=== PATIENT | male | born 1980 | race Caucasian/White ===

== ENCOUNTER 2017-02-08 11:15 | Emergency (ER) | payer BC ==
[~2017-02-08] VITALS: Ht 180.3 cm; Wt 122.5 kg
[~2017-02-08 11:15] MED LIST: CIPRO 500MG TA500 MG PO
--- OUTSIDE RECORDS SUMMARY | 2017-02-08 11:21 | External Medical Summary Rpt ---
Author Author NELSON Address Unknown Phone [email or web address] Purpose Continuity of Care Document - through 2016
--- OUTSIDE RECORDS SUMMARY | 2017-02-08 11:21 | External Medical Summary Rpt ---
Author Author [employer] Organization [employer] Address Unknown Phone Unavailable Purpose Continuity of Care Document - through 2016
--- OUTSIDE RECORDS SUMMARY | 2017-02-08 11:21 | External Medical Summary Rpt ---
Demographics Preferred Language Tamaz[place] Marital Status Unknown Hindu Affiliation Unknown Race Unknown Ethnic Group Unknown Author Author , NELSON DAMON Address Unknown Phone Immunization Unable to retrieve immunization data due to connection failure with Immunization Registry. Please try again later.
--- OUTSIDE RECORDS SUMMARY | 2017-02-08 11:21 | External Medical Summary Rpt ---
Author Author NELSON Verde, [employer] Organization [employer] Address Unknown Phone Unavailable
--- OUTSIDE RECORDS SUMMARY | 2017-02-08 11:21 | External Medical Summary Rpt ---
Demographics Preferred Language Belarusian Marital Status Unknown Alevism Affiliation Unknown Race Unknown Ethnic Group Unknown Author Author , NELSON DAMON Address Unknown Phone Immunization Unable to retrieve immunization data due to connection failure with Immunization Registry. Please try again later.
--- OUTSIDE RECORDS SUMMARY | 2017-02-08 11:21 | External Medical Summary Rpt ---
Author Author NELSON Address Unknown Phone [email or web address] Purpose Continuity of Care Document - through 2016
--- NOTE | 2017-02-08 11:50 | Urgent Treatment Center Report ---
History of Present Issue Date/Time Seen by Provider 02/08/17 1122 Visit Reason Pt arrived:Walked Presenting Problem:PT STATES HE WAS PLAYING SOFTBALL TUESDAY WHEN HE WAS RUNNING AND FELT HIS RIGHT CALF MUSCLE POP. SWELLING NOTED. STATES APPLYING ICE AND TAKING FLEXERIL Location if Accident: Onset of symptoms date/time:02/06/17/ or onset unknown for:MEDICAL HX UNKNOWN Have you (or family members/close friends) recently traveled outside the [place]? N If Yes, where/when: Have you had exposure to infectious disease within the past month? TB? Other? Specify: Patient states that he was playing softball on Tuesday when he went to make a quick turn while running and felt a "pop" in his right calf muscle. States that it immediately started hurting and swelling. States that since then he has used ice to help with swelling and taking flexeril and pain medication but it has not helped and now it hurts when he tries to move his foot and swelling is worse and the calf area feels tight ALLERGIES Coded Allergies: Penicillins (02/08/17) History Medical History General CAD? No Angina: No NC: No Hypertension? No Hyperlipidemia? No CHF? No DVT? No PE? No COPD? No Asthma? No Anemia? No GERD? No Gastric ulcers? No GI Bleed? No Hernia? No Thyroid Problems? No Hypothyroidism? No CVA? No Seizures? No Diabetes? No Renal Insuffiency? No UTI? No Stones? No BPH? No GB Disease: No Nephritic Syndrome? No Asplenia? No Hepatitis? No Sickle Cell Disease? No Arthritis? No Migraines? No Cataracts? No Glaucoma? No MRSA? No HIV? No TB? No Anxiety? No Depression? No Cancer? No Immunization HX DT/Tetanus NOT SURE Surgical Hx Previous Surgery?Y LEFT ANKLE Back Surgery Social History Smoking Hx Smoker: Never Smoker Tobacco: No Alcohol Alcohol: No Review of Systems All Other Systems Reviewed and Negative Comment Pain and swelling in right calf area after feeling a pop in calf muscle while running playing Softball on Tuesday Physical Exam Vital Signs Vital Signs Date Time Temp Pulse Resp B/P Pulse O2 O2 Flow FiO2 Ox Delivery Rate 02/08 1147 98.6 80 18 126/80 98 02/08 1126 98.6 80 18 126/80 98 General Appearance normal appearance, WD/WN, mild distress Respiratory Status Yes: trachea midline, chest symmetrical, non tender chest. No: respiratory distress. Lung Sounds bilateral: normal breath sounds, lungs clear. Cardiovascular normal exam, regular rate/rhythm, no peripheral edema, no gallop Extremities swelling, Pain and swelling in right calf area, good pedal pulses and good cap refill Pain noted with manipulation of foot no discoloration observed Neurologic alert, director of individual giving II-XII nml as tested, normal exam, no motor/sensory deficits, oriented x 3 Medical Decision Making LABS/Meds/Orders Pt receiving controlled substance in ED? No (not in [place] transfered to ER) Progress [facility] Progress Notes Date 02/08/17 Time 1148 Comment Patient condtion discussed with ER physician Dr Vale and agreed that patient needed to be seen in the ER for further work up Patient transfered to ER Departure Departure Time of Disposition 1149 Disposition Still a Patient Clinical Impression Primary Impression: Lower extremity injury Qualifiers: Encounter type: initial encounter Laterality: right Qualified Code: S89.91XA - Unspecified injury of right lower leg, initial encounter Condition STABLE Referrals Rolly RAO,A.C. (Family) at 1150
--- NOTE | 2017-02-08 11:50 | Urgent Treatment Center Report ---
History of Present Issue Date/Time Seen by Provider 02/08/17 1122 Visit Reason Pt arrived:Walked Presenting Problem:PT STATES HE WAS PLAYING SOFTBALL TUESDAY WHEN HE WAS RUNNING AND FELT HIS RIGHT CALF MUSCLE POP. SWELLING NOTED. STATES APPLYING ICE AND TAKING FLEXERIL Location if Accident: Onset of symptoms date/time:02/06/17/ or onset unknown for:MEDICAL HX UNKNOWN Have you (or family members/close friends) recently traveled outside the [place]? N If Yes, where/when: Have you had exposure to infectious disease within the past month? TB? Other? Specify: Patient states that he was playing softball on Tuesday when he went to make a quick turn while running and felt a "pop" in his right calf muscle. States that it immediately started hurting and swelling. States that since then he has used ice to help with swelling and taking flexeril and pain medication but it has not helped and now it hurts when he tries to move his foot and swelling is worse and the calf area feels tight ALLERGIES Coded Allergies: Penicillins (02/08/17) History Medical History General CAD? No Angina: No ID: No Hypertension? No Hyperlipidemia? No CHF? No DVT? No PE? No COPD? No Asthma? No Anemia? No GERD? No Gastric ulcers? No GI Bleed? No Hernia? No Thyroid Problems? No Hypothyroidism? No CVA? No Seizures? No Diabetes? No Renal Insuffiency? No UTI? No Stones? No BPH? No GB Disease: No Nephritic Syndrome? No Asplenia? No Hepatitis? No Sickle Cell Disease? No Arthritis? No Migraines? No Cataracts? No Glaucoma? No MRSA? No HIV? No TB? No Anxiety? No Depression? No Cancer? No Immunization HX DT/Tetanus NOT SURE Surgical Hx Previous Surgery?Y LEFT ANKLE Back Surgery Social History Smoking Hx Smoker: Never Smoker Tobacco: No Alcohol Alcohol: No Review of Systems All Other Systems Reviewed and Negative Comment Pain and swelling in right calf area after feeling a pop in calf muscle while running playing Softball on Tuesday Physical Exam Vital Signs Vital Signs Date Time Temp Pulse Resp B/P Pulse O2 O2 Flow FiO2 Ox Delivery Rate 02/08 1147 98.6 80 18 126/80 98 02/08 1126 98.6 80 18 126/80 98 General Appearance normal appearance, WD/WN, mild distress Respiratory Status Yes: trachea midline, chest symmetrical, non tender chest. No: respiratory distress. Lung Sounds bilateral: normal breath sounds, lungs clear. 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 No (not in [place] transfered to ER) Progress [facility] Progress Notes Date 02/08/17 Time 1148 Comment Patient condtion discussed with ER physician Dr Vale and agreed that patient needed to be seen in the ER for further work up Patient transfered to ER Departure Departure Time of Disposition 1149 Disposition Still a Patient Clinical Impression Primary Impression: Lower extremity injury Qualifiers: Encounter type: initial encounter Laterality: right Qualified Code: S89.91XA - Unspecified injury of right lower leg, initial encounter Condition STABLE Referrals Rolly RAO,A.C. (Family) at 1150
--- NOTE | 2017-02-08 12:08 | Emergency Room Report ---
History of Present Illness Time Seen by MD Banks Presenting Problem in Triage Pt arrived:Walked Presenting Problem:PT STATES HE WAS PLAYING SOFTBALL TUESDAY WHEN HE WAS RUNNING AND FELT HIS RIGHT CALF MUSCLE POP. SWELLING NOTED. 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 N Clinical Suspician of Infection? N Mental Status: 1 - Regular (Normal Baseline) Sepsis Risk:Low Sepsis Risk Have you (or family members/close friends) recently traveled outside the [place]? N If Yes, where/when: Have you had exposure to infectious disease within the past month? N TB? Other? Specify: Patient was playing softball on Tuesday running and he fell a pop in the back of his upper calf, right. He has pain and swelling since then. Denies any numbness in his foot. No fevers or chills no falls or trauma. Moderate Achy pain worse with ambulation. ALLERGIES Coded Allergies: No Known Allergies (02/08/17) Home Medications Reported Medications No Known Home Medications History Medical History General CAD? No Angina: No AL: No Hypertension? No Hyperlipidemia? No CHF? No DVT? No PE? No COPD? No Asthma? No Anemia? No GERD? No Gastric ulcers? No GI Bleed? No Hernia? No Thyroid Problems? No Hypothyroidism? No CVA? No Seizures? No Diabetes? No Renal Insuffiency? No End Stage Renal Disease? No UTI? No Stones? No BPH? No GB Disease: No Nephritic Syndrome? No Asplenia? No Hepatitis? No Sickle Cell Disease? No Arthritis? No Migraines? No Cataracts? No Glaucoma? No MRSA? No HIV? No TB? No Anxiety? No Depression? No Cancer? No Immunization Hx DT/Tetanus NOT SURE Surgical Hx Previous Surgery?Y LEFT ANKLE Back Surgery Social History Smoking Hx Smoker: Never Smoker Tobacco: No Alcohol Alcohol: No Review of Systems All Other Systems Reviewed and Negative Physical Exam Vital Signs Vital Signs Date Time Temp Pulse Resp B/P Pulse O2 O2 Flow FiO2 Ox Delivery Rate 02/08 1147 98.6 80 18 126/80 98 02/08 1126 98.6 80 18 126/80 98 General Appearance: Nontoxic Head: Normocephalic, without obvious abnormality, atraumatic. Eyes: conjunctiva/corneas clear ENT: Mucous membranes moist. Neck: No jugular venous distention. Extremities: no edema Musculoskeletal: Patient has swelling in the RIGHT calf and tenderness in the RIGHT calf Sensation intact and equal in both feet. 2+ pulses capillary refill intact Sensation intact Does have pain with passive motion Does have tenderness throughout the calf Sethi test is normal Skin: No rashes or lesions to exposed skin. Neurologic: Alert. No gross focal deficits Psychiatric: Normal affect (Bipin Vale MD) General Appearance normal appearance Respiratory Status No: respiratory distress. Cardiovascular no JVD Neurologic alert Medical Decision Making LABS/Meds/Orders Pt receiving controlled substance in ED? No Comment 1200 dw Bebe RAO compartment syndrome in differential, likely muscle tear in calf. he will see in office today. Results/Orders Orders Procedure Date/time Status STABILIZE JOINT 02/08 1207 Active Departure Departure Time of Disposition 1205 Disposition Still a Patient Clinical Impression Primary Impression: Injury of lower extremity Qualifiers: Encounter type: initial encounter Laterality: right Qualified Code: S89.91XA - Unspecified injury of right lower leg, initial encounter Condition STABLE Referrals Julián Spence MD Patient Instructions DI for Calf Muscle Strain Additional Instructions report to Dr. Spence office today for recheck. You have a tear of your calf muscle. You are at risk for compartment syndrome, which can be limb threatening, and need rexamine today by orthopedics Discharge Counseling Counseled pt/family regarding diagnosis, test results, follow up needs Prescriptions Current Visit Scripts No Known Home Medications ED Critical Care Critical Care No at 1208
[2017-02-08 12:14] VITALS: BP 126/80
== END 2017-02-08 12:14 | disposition still patient (30) ==
LOC: UTC 11:15 → ER 11:18 → UTC 11:18 → ER 12:14
DX: S89.91XA Unspecified injury of right lower leg, initial encounter (principal); X50.3XXA Overexertion from repetitive movements, initial encounter; Y93.64 Activity, baseball; Y92.838 Other recreation area as the place of occurrence of the external cause